=== PATIENT | male | born 1970 | race Caucasian/White ===

== ENCOUNTER 2019-06-04 10:21 | Emergency (ER) | payer MEDICAID ==
[~2019-06-04] VITALS: Ht 172.7 cm; Wt 70.4 kg
[2019-06-04 10:34] VITALS: Ht 172.7 cm; Wt 70.4 kg
[2019-06-04] MEDS ORDERED: ACETAMINOPHEN 500 MG TAB PO STA (11:35)
--- NOTE | 2019-06-04 12:03 | ERD ---
ER Documentation Chief Complaint Chief Complaint C/O H/A WITH SHAKINESS AND SWEATING TODAY. NO N/V. NO CP. HPI This is a 48-year-old male patient who presents to emergency room with complaint of feeling shaky, sweaty, while driving and is now headache and feeling faint x2 hours. Patient states his last meal was approximately 20 hours ago. Denies any other symptoms such as nausea, vomiting, diarrhea, blurred vision, fever. Patient with clear speech, steady gait, NAD at time of evaluation. ROS All systems reviewed and are negative except as per history of present illness. Medications Home Meds Active Scripts Ibuprofen* (Motrin*) 600 Mg Tab, 600 MG PO Q6, #30 TAB Prov:BIJU SINGER NP 06/04/19 Acetaminophen* (Tylophen*) 500 Mg Capsule, 2 CAP PO Q8H PRN for PAIN AND OR ELEVATED TEMP, #20 CAP Prov:BIJU SINGER LEAD NURSE 06/04/19 Allergies Allergies: Coded Allergies: No Known Allergy (Unverified , 06/04/19) PMhx/Soc Medical and Surgical Hx: pt denies Medical Hx, pt denies Surgical Hx Hx Alcohol Use: Yes Hx Substance Use: No Hx Tobacco Use: No Smoking Status: Never smoker FmHx Family History: No diabetes, No coronary disease, No other Physical Exam Vitals Vital Signs Date Temp Pulse Resp B/P (MAP) Pulse Ox O2 O2 Flow FiO2 Time Delivery Rate 06/04/19 98.0 68 16 165/88 98 Room Air 13:36 (113) 06/04/19 98.2 76 18 170/90 98 10:34 (116) Physical Exam Const: No acute distress Head: No bruising, no swelling, no hematoma, no crepitus Eyes: Normal Conjunctiva. PERRL, EOMI, no nystagmus ENT: Normal External Ears, TM clear BL, normal nose and Mouth. Pharynx pink, moist, no oral injury. Neck: Full range of motion. No meningismus. No cervical spinal tenderness. No lymphadenopathy Resp: Clear to auscultation bilaterally, no rales, rhonchi. Chest rise equal bilaterally. Cardio: Regular rate and rhythm, no murmurs Abd: Soft, non tender, non distended. Normal bowel sounds. Skin: No petechiae or rashes, no abrasions, no hematomas. Back: No midline or flank tenderness, no point tenderness to spine, FROM, no CVT Ext: No cyanosis, or edema, no deformities Neur: Awake and alert, CN II-XII intact, steady gait, clear speech, no pronator drift, equal smile, BL incident analyst 5/5, sensation intact BL, negative Romberg, negative [id number] test. Psych: Normal Mood and Affect Result Diagram: 06/04/19 1153 06/04/19 1153 Results 24 hrs Laboratory Tests Test 06/04/19 11:53 06/04/19 11:55 06/04/19 11:58 White Blood Count 5.7 10^3/ul Red Blood Count 4.95 10^6/ul Hemoglobin 15.8 g/dl Hematocrit 46.3 % Mean Corpuscular Volume 93.5 fl Mean Corpuscular Hemoglobin 31.9 pg Mean Corpuscular 34.1 g/dl Hemoglobin Concent Red Cell Distribution Width 13.2 % Platelet Count 321 10^3/UL Mean Platelet Volume 9.5 fl Immature Granulocytes % 0.200 % Neutrophils % 76.1 % Lymphocytes % 15.5 % Monocytes % 6.9 % Eosinophils % 0.4 % Basophils % 0.9 % Nucleated Red Blood Cells % 0.0 /100WBC Immature Granulocytes # 0.010 10^3/ul Neutrophils # 4.3 10^3/ul Lymphocytes # 0.9 10^3/ul Monocytes # 0.4 10^3/ul Eosinophils # 0.0 10^3/ul Basophils # 0.1 10^3/ul Nucleated Red Blood Cells # 0.0 10^3/ul Sodium Level 142 mmol/L Potassium Level 4.6 mmol/L Chloride Level 101 mmol/L Carbon Dioxide Level 29 mmol/L Anion Gap 12 Blood Urea Nitrogen 11 mg/dl Creatinine 0.74 mg/dl Est Glomerular Filtrat Rate mL/min > 60 mL/min Glucose Level 118 mg/dl Calcium Level 10.1 mg/dl Bedside Glucose 108 mg/dL Bedside Urine pH (LAB) 7.0 Bedside Urine Protein (LAB) Negative Bedside Urine Glucose (UA) Negative Bedside Urine Ketones (LAB) Negative Bedside Urine Blood Negative Bedside Urine Nitrite (LAB) Negative Bedside Urine Leukocyte Esterase Negative (L Current Medications Medications Dose Sig/Karina Start Time Status Last (Trade) Ordered Route PRN Stop Time Admin Dose Reason Admin 1,000 mg ONCE STAT 06/04/19 DC 06/04/19 Acetaminophen PO 11:35 11:52 (Tylenol 06/04/19 11:37 Tab) Procedures/MDM PROCEDURES/MDM EKG: Read by Dr. Ayala, attending physician. EKG shows normal sinus rhythm at a rate of 61 bpm No arrhythmias, acute ST elevations DIAGNOSTIC IMAGING: Not indicated at this time LAB INTERPRETATION: CBC = no leukocytosis or anemia BMP = no electrolyte disturbance no hyper or hypoglycemia, no kidney dysfunction Urinalysis = infection or ketosis -Medications: Tylenol Patient tolerated medication well with no adverse reactions. Patient reported improvement in pain. MDM: This is a 48-year-old male patient who presents to the emergency room with complaint of feeling shaky approximately 2 hours prior to arrival while driving. Patient also states he had not eaten since at 1:00 in the afternoon yesterday. Patient's exam today negative for signs of infection, electrolyte disturbance, anemia, diabetes or hyper hypoglycemia, or other concerning finding. EKG does not show concern for ischemia or arrhythmia. 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 Long discussion had with patient and his regarding alcohol use, nutrition, hydration, sleep, general wellness. Discussed patient's hypertension and need for further evaluation and possible medication management. Patient does not have primary care provider at this time, patient was provided with referrals and results of lab work and EKG and instructed to establish care with primary care provider as soon as possible and to bring today's work-up. Patient's headache and symptoms resolved at time of reevaluation. Patient was prescribed Tylenol for his headache. The patient was well-appearing with VSS and without neurological deficits at time of reevaluation and discharge. Clinical and diagnostic exam not suggestive of infection, intracranial process, SAH, SDH, neoplasm, meningitis, encephalitis, aneurysm, thrombus, temporal arteritis, sinusitis. The patient has been provided with instructions on self-care including use of analgesia, reducing triggers, and need for close follow-up with primary care physician within 1-2 days for reevaluation. The patient has been instructed to return immediately for worsening symptoms, change in pattern of current symptoms, or other acute problems. DISPOSITION and PLAN: RX: Tylenol The patient has been discharge home to follow-up with community physician. Departure Diagnosis: Primary Impression: Shakiness Additional Impressions: Headache Headache type: unspecified Headache chronicity pattern: episodic headache Intractability: not intractable Qualified Codes: R51 - Headache Hypertension Hypertension type: unspecified Qualified Codes: I10 - Essential (primary) hypertension Condition: BIJU Arana NP Jun 04, 2019 12:03
[2019-06-04] MEDS ORDERED: ACET500C5 PO (13:17)
[2019-06-04] MEDS ORDERED: IBUP-1542 PO (13:17)
[2019-06-04 13:36] VITALS: BP 165/88; PULSE 68; RESP 16
== END 2019-06-04 13:35 | disposition home or self-care (01) ==
LOC: EDSEX 10:21 → FTE 10:21
DX: R25.1 Tremor, unspecified (principal); I10 Essential (primary) hypertension
CPT/HCPCS: 80048; 81003; 82962; 85025; 93005; Z7502; Z7610

== ENCOUNTER 2019-07-14 20:38 | Emergency (ER) | payer SELFPAY ==
[~2019-07-14] VITALS: Ht 170.2 cm; Wt 69.7 kg
[~2019-07-14 20:38] MED LIST: ACET500C5 PO; IBUP-1542 PO
[2019-07-14 20:40] VITALS: BP 168/99; PULSE 82; RESP 19; Ht 170.2 cm; Wt 69.7 kg
== END 2019-07-14 23:47 | disposition left against medical advice (07) ==
LOC: E/R 20:38
DX: Z53.21 Procedure and treatment not carried out due to patient leaving prior to being seen by health care provider (principal)
CPT/HCPCS: 93005